=== PATIENT | female | born 2000 ===

== ENCOUNTER 2023-05-24 10:45 | Outpatient (CLI) | payer MEDICAID, SELFPAY ==
[2023-05-24 10:58] VITALS: BP 132/77; PULSE 86; TEMP 35.5
[2023-05-24 11:14] VITALS: BP 124/73; PULSE 86
[2023-05-24 11:28] VITALS: BP 134/83; PULSE 86
[2023-05-24 12:02] VITALS: RESP 16
[2023-05-24 12:03] VITALS: BMI 37.5
== END 2023-05-24 11:44 | disposition home or self-care (01) ==
LOC: OPOB 10:46 → OBGYN 10:47
PROVIDERS: Visit Provider Family Medicine
DX: O24.419 Gestational diabetes mellitus in pregnancy, unspecified control (principal); Z3A.00 Weeks of gestation of pregnancy not specified
CPT/HCPCS: 59025; 99211

== ENCOUNTER 2023-05-26 13:36 | Outpatient (CLI) | payer MEDICAID, SELFPAY ==
[2023-05-26] VITALS (7 sets, daily range): BP systolic 123–148; BP diastolic 74–80; PULSE 72–98; RESP 17–18; BMI 37.5
== END 2023-05-26 14:54 | disposition home or self-care (01) ==
LOC: OPOB 13:37 → OBGYN 13:43
PROVIDERS: Visit Provider Family Medicine
DX: O24.419 Gestational diabetes mellitus in pregnancy, unspecified control (principal); Z3A.00 Weeks of gestation of pregnancy not specified
CPT/HCPCS: 59025; 99211

== ENCOUNTER 2023-06-02 15:24 | Inpatient (IN) | payer MEDICAID, SELFPAY ==
[2023-06-02] VITALS (54 sets, daily range): BP systolic 102–150; BP diastolic 51–94; PULSE 70–133; RESP 16–18; TEMP 36.4–36.7; O2SAT 97–100; BMI 37.8
[2023-06-02 10:45] LABS: Glucose Point of Care 91 mg/dL (70-110)
[2023-06-02 11:03] LABS: Basophils % 0.2 %; Eosinophils # 0.1 10^3/uL (0.0-0.8); Hematocrit 34.8 % (36-47); Lymphocytes % 19.4 %; Mean Corpuscular HGB Conc 29.3 g/dL (30-55); Mean Corpuscular Hemoglobin 20.4 pg (27-33); Mean Corpuscular Volume 69.7 fl (85-98); Monocytes # 0.6 10^3/uL (0.2-0.9); Neutrophils # 7.62 10^3/uL (1.8-8.0); Neutrophils % 72.6 %; Nucleated Red Blood Cells % 0.3 %; Platelet Count 261 10^3/cmm (157-399); Red Blood Count 4.99 10^6/uL (3.85-5.65); Red Cell Distribution Width 19.8 % (12.1-15.1); White Blood Count 10.48 10^3/uL (4.5-13.0)
[2023-06-02 11:21] LABS: Slide Review Slide Review Perform
[2023-06-02] MEDS: lactated ringers 1,000 ML 999 ML IV (11:30)
[2023-06-02] MEDS: ROPivacaine syringe 100 MG/50 ML SYRINGE 10 MG EPIDURAL ×2 (12:58→16:18)
[2023-06-02] MEDS: dextrose 5%-lactated ringers 1,000 ML 125 ML IV (12:58)
--- NOTE | 2023-06-02 13:19 | P.ANESASSM_ITS ---
Pre-Anesthetic Assessment Height/Weight: Height 1.57 m Weight 93.894 kg Pulse Resp BP Pulse Ox O2 Del Method 112 H 16 113/67 100 Room Air 06/02/23 13:10 06/02/23 10:24 06/02/23 13:10 06/02/23 12:49 06/02/23 10:24 Familial anesthetic complications: None Was Beta Deloris taken within 24 hours: N/A Was Clonidine taken within 24 hours: N/A Social No alcohol and No tobacco Exam alert, oriented x 3, clear to auscultation bilaterally and regular rate & rhythm Airway Submandibular: within normal limits Cervical ROM: within normal limits Mallampati: Class II Dentition: full Anesthetic Plan ASA status: 2 Anesthesia: Regional (specify below) (Labor epidural) Medications/Allergies Home Medications Medication Instructions Recorded Confirmed Last Taken Type No Known Home Medications 05/24/23 05/24/23 Unknown History Allergies Allergy/AdvReac Type Severity Reaction Status Date / Time No Known Allergies Allergy Verified 05/24/23 12:20 Current Medications Generic Name Dose Route Start Last Admin Trade Name Freq PRN Reason Stop Dose Admin Dextrose/Lactated Ringer's 1,000 mls @ 125 mls/hr 06/02/23 10:30 06/02/23 12:58 Dextrose 5%-Lactated Ringers IV 125 mls/hr .Q8H MILAN Administration Lactated Ringer's 1,000 mls @ 999 mls/hr 06/02/23 11:20 06/02/23 11:30 Lactated Ringers IV 999 mls/hr .Q1H1M PRN Administration See label comments Ropivacaine 100 mg in 50 mls @ 10 mls/hr 06/02/23 11:30 06/02/23 12:58 Naropin Syringe EPIDURAL 10 mls/hr .Q5H MILAN Administration PFSH Anesthesia Female Reproductive History : 2 Data Anesthesia 06/02/23 10:45 Short CBC 06/02/23 Range/Units 10:45 WBC 10.48 (4.5-13.0) 10^3/uL Hgb 10.20 L (12.4-14.8) g/dL Hct 34.8 L (36-47) % MCV 69.7 L (85-98) fl Plt Count 261 (157-399) 10^3/cmm Neut % (Auto) 72.6 % Neut # (Auto) 7.62 (1.8-8.0) 10^3/uL Blood Bank 06/02/23 10:45 Blood Type A Positive Rho(D) Type Rh positive Antibody Screen Negative Cardiac Studies: 2 No Data to Display Anesthesia Procedures Epidural Time Out Performed: Yes Consents Signed: Procedure Consent Consent: requested by attending/covering physician, from patient, risks and benefits reviewed and patient agrees to proceed Lumbar Level: L3-L4 Epidural position: sitting Epidural procedure: sterile prep of area, 1% lidocaine to numb the area, 18 g needle, neg for paresthesia, test dose given, 0.2% Ropivacaine bolus ml, placed PCEA, sterile dressing applied and 0.2% Ropiavacaine @ mls/hr (10) Additional Comments: ASHWINI at 6cm, cath at 11cm, 5mls 2% lido PF
[2023-06-02] MEDS: oxytocin 30 UNIT/500 ML BAG IV (14:45)
--- NOTE | 2023-06-02 17:01 | PM.OPHPUD ---
Labor & Delivery H&P Update Date of Procedure: June 02, 2023 Date H&P Performed: 06/02/23 Admission Diagnosis: IUP at 38 weeks 6 days gestation Active labor Gestational diabetes mellitus, noncompliant Other information: This is a 22-year-old G2, P1 at 38 weeks 6 days gestation who presented to clinic for routine follow-up. She complained of irregular contractions that were painful. When she was checked in office she was found to be a good 4 to 5 cm dilated 70% effaced with a bulging bag of water. She was sent to labor and delivery for expectant management. Of note this has been complicated by gestational diabetes mellitus. The patient has been noncompliant. In fact she never did complete a 3-hour glucose tolerance test. She was started on 4 times daily blood sugar checks but was noncompliant with those as well. Her hemoglobin A1c was 5.8. Her few postprandial Accu-Cheks that she did perform had a high of 165. Most were 140s or below. The patient was started on twice weekly NSTs, due to the gestational diabetes mellitus,but again she was noncompliant with those.
--- NOTE | 2023-06-02 17:49 | PM.DELIVERY ---
Delivery Note: Date of delivery: June 02, 2023 Estimated blood loss (mL): 200 Pre-Delivery Course: The patient had routine care at [facility]. Blood type was A positive, antibody negative, hepatitis B nonreactive, hepatitis C nonreactive, HIV nonreactive, rubella immune, GC chlamydia negative, RPR nonreactive, UDS negative, she failed her glucose tolerance test and never did a follow-up 3-hour glucose tolerance test. She was therefore labeled as GDM and was started on 4 times daily sugar checks. Despite discussing the risks of untreated gestational diabetes mellitus the patient continued to remain noncompliant. She brought in only 1 sugar log that contained only approximately 8 blood sugars. Her postprandials were mostly 140s or less but she did have a 162. She was started on twice weekly NSTs but was noncompliant with those. Her hemoglobin A1c was 5.8. She was GBS negative Delivery: This is a 22-year-old G2, P1 at 38 weeks 6 days gestation who presented in active labor. She received an epidural for pain management. She had artificial rupture of membranes with clear fluid. Rupture membranes was approximately 1-1/2 hours prior to delivery. She had a normal spontaneous vaginal delivery of a viable male weight 3495 g, 7 pounds 11 ounces, Apgars 8 and 9 over an intact perineum. The infant was suctioned at delivery and placed on the mother's chest. The cord was clamped and cut. The placenta was delivered grossly intact and normal to inspection. There were no lacerations. Coding Level of Care Code Acute Code for Chg Fwd
[2023-06-02] MEDS: ibuprofen 800 mg tablet PO (21:13)
[2023-06-02] MEDS: docusate sodium 100 mg Capsule PO (21:13)
[2023-06-03 01:30] VITALS: BP 127/77; PULSE 82; RESP 17; TEMP 36.7
[2023-06-03 03:30] VITALS: BP 130/74; PULSE 85; RESP 18; TEMP 36.6
[2023-06-03 05:55] LABS: Hematocrit 30.3 % (36-47); Mean Corpuscular HGB Conc 29.7 g/dL (30-55); Mean Corpuscular Hemoglobin 20.4 pg (27-33); Mean Corpuscular Volume 68.7 fl (85-98); Platelet Count 228 10^3/cmm (157-399); Red Blood Count 4.41 10^6/uL (3.85-5.65); Red Cell Distribution Width 19.2 % (12.1-15.1); White Blood Count 14.43 10^3/uL (4.5-13.0)
[2023-06-03 06:00] VITALS: BMI 37.8
--- NOTE | 2023-06-03 10:47 | ANE.PACU2 ---
Inpatient post-anesthesia follow up: Airway intact: Yes Vital signs: Temperature 97.9 F Pulse Rate 85 Respiratory Rate 18 Blood Pressure 130/74 Pulse Oximetry 98 Oxygen Delivery Me thod Room Air Oxygen Flow Rate Fraction of Inspir ed Oxygen Hydration adequate: Yes Nausea and vomiting: No Pain level: 2 Mental status: Baseline Additional Comments: Anes start 06/02/23 1200 Anes end 06/02/23 [id number]
[2023-06-03] MEDS: docusate sodium 100 mg Capsule PO (11:08)
[2023-06-03 11:30] VITALS: BP 145/71; PULSE 80; RESP 17; TEMP 36.8
--- NOTE | 2023-06-03 16:38 | PM.DCS ---
Discharge Providers Date of Admission: 06/02/23 15:24 Date of Discharge: June 03, 2023 Attending Provider at Admission: Tiny Hill MD Attending Provider at Discharge: Tiny Hill MD Reason for Visit Reason for Visit: contractions Hospital Course Hospital Course This is a 22-year-old G2 now P2 who was admitted in active labor at 38 weeks 6 days gestation. She had a normal spontaneous vaginal delivery of a viable male . Mother and infant did well after delivery. On day #1 she was ambulating, tolerating a regular diet, had essentially no pain and had average to light vaginal bleeding. Physical Exam Narrative: Alert and oriented, sitting up in bed, heart regular rate and rhythm, lungs clear to auscultation bilaterally, abdomen is soft and nontender, fundus is firm and U -3, extremities have 1+ edema but no calf tenderness. Urinary Catheter Management: Gutierres: Cath Placed During This Visit: yes Urinary Catheter Date of Insertion: 06/02/23 Urinary Catheter Time of Insertion: 13:40 Discharge Data Studies Completed and Pending Laboratory Results WBC 14.43 10^3/uL (4.5-13.0) H 06/03/23 05:45 RBC 4.41 10^6/uL (3.85-5.65) 06/03/23 05:45 Hgb 9.00 g/dL (12.4-14.8) L 06/03/23 05:45 Hct 30.3 % (36-47) L 06/03/23 05:45 MCV 68.7 fl (85-98) L 06/03/23 05:45 MCH 20.4 pg (27-33) L 06/03/23 05:45 MCHC 29.7 g/dL (30-55) L 06/03/23 05:45 RDW 19.2 % (12.1-15.1) H 06/03/23 05:45 Plt Count 228 10^3/cmm (157-399) 06/03/23 05:45 MPV Not Reportable 06/03/23 05:45 Neut % (Auto) 72.6 % 06/02/23 10:45 Lymph % (Auto) 19.4 % 06/02/23 10:45 Aiken % (Auto) 6.0 % 06/02/23 10:45 Eos % (Auto) 1.0 % 06/02/23 10:45 Baso % (Auto) 0.2 % 06/02/23 10:45 Neut # (Auto) 7.62 10^3/uL (1.8-8.0) 06/02/23 10:45 Lymph # (Auto) 2.0 10^3/uL (1.5-6.5) 06/02/23 10:45 Aiken # (Auto) 0.6 10^3/uL (0.2-0.9) 06/02/23 10:45 Eos # (Auto) 0.1 10^3/uL (0.0-0.8) 06/02/23 10:45 Baso # (Auto) 0.0 10^3/uL (0.0-0.1) 06/02/23 10:45 Nucleated RBC % (auto) 0.3 % 06/02/23 10:45 Nucleated RBCs # 0.0 /100WBC 06/02/23 10:45 POC Glucose 91 mg/dL (70-110) 06/02/23 10:36 Blood Type A Positive 06/02/23 10:45 Rho(D) Type Rh positive 06/02/23 10:45 Antibody Screen Negative 06/02/23 10:45 Vitals Last Vital Signs Temp 98.2 F 06/03/23 11:30 Pulse 80 06/03/23 11:30 Resp 17 06/03/23 11:30 BP 145/71 06/03/23 11:30 Pulse Ox 98 06/02/23 20:15 O2 Del Method Room Air 06/02/23 20:15 Discharge Plan Discharge Patient Disposition: Home Condition: Stable Prescriptions: No Action No Known Home Medications Discharge Orders: Discharge Order (Routine); Ordered 06/03/23 Ordered By: Tiny Hill Referrals: Tiny Hill MD [Physician] - 1 month Discharge Diet: Usual diet Discharge Activity: Limit activity as instructed Patient Instructions: Opioid Safety Discharge Attestations Time Spent in Discharge Care*: less than 30 min Quality Metrics Clinical Quality Measures [ No reported AMI, CVA or VTE this stay] Coding Level of Care Code Acute Code for Chg Fwd
[2023-06-03 17:00] VITALS: BP 138/79; PULSE 87; RESP 18; TEMP 36.7
[2023-06-03 20:00] VITALS: BP 130/70; PULSE 86; RESP 18; TEMP 36.7; O2SAT 100
== END 2023-06-03 20:29 | disposition home or self-care (01) | DRG 807 ==
LOC: OPOB 15:25 → OBGYN 15:25
PROVIDERS: Admitting Provider Family Medicine; Visit Provider Family Medicine
DX: O24.429 Gestational diabetes mellitus in childbirth, unspecified control (principal); Z37.0 Single live birth; Z3A.38 38 weeks gestation of pregnancy
CPT/HCPCS: 36415; 36416; 51702; 59025; 59409; 82962; 85025; 85027; 86850; 86900; 99211; J2590; J2795; J3010; J7120; J7121